=== PATIENT | female | born 1990 | race Caucasian/White ===

== ENCOUNTER 2018-05-07 19:00 | Emergency (ER) | payer OTHER ==
[2018-05-07 19:38] VITALS: RESP 18; TEMP 98
--- NOTE | 2018-05-07 20:18 | XR ---
EXAMINATION TYPE: XR knee complete RT DATE OF EXAM: 05/07/2018 COMPARISON: NONE HISTORY: Knee pain TECHNIQUE: 3 views FINDINGS: I see no fracture nor dislocation. There is no sign of a joint effusion. Joint spaces are f airly normal. IMPRESSION: Negative right knee exam.
[2018-05-07] MEDS ORDERED: KETOROLAC 30 MG/ML 1 ML VIAL IM STA (21:03)
--- NOTE | 2018-05-07 21:07 | ED ---
Lower Extremity Injury HPI - General Chief Complaint: Extremity Injury, Lower Stated Complaint: Knee popped Source: patient Mode of arrival: wheelchair Limitations: no limitations - History of Present Illness Initial Comments: 27-year-old female with past medical history of drug abuse presenting today for chief complaint of right knee pain. Patient states she went to stand up today from a seated position noting severe pain in the right knee as well as a popping sensation. Patient felt as though her knee was unstable following that incident. Patient denies any dislocation. Patient denies numbness, tingling, loss sensation. Patient states she has difficulty fully weightbearing secondary to fear of knee giving out. Patient denies any redness, swelling or warmth to palpation the chart. Patient denies a fever, chills or night sweats. Patient denies any recent IV drug use. Upon arrival patient appears well, no signs of acute distress. Patient has Tuan bandage around right knee. Remainder of ROS is negative, patient denies any recent fever, chills, shortness of breath , chest pain, back pain, abdominal pain, nausea or vomiting, numbness or tingling, dysuria or hematuria, constipation or diarrhea, headaches or visual changes, or any other complaints. Upon arrival patient appears well, no signs acute distress. She denies recent antibiotic use including fluoroquinolones. PT denies . - Related Data Home Medications Medication Instructions Recorded Confirmed Acetaminophen [Tylenol Arthritis] 650 mg PO Q4H 05/07/18 05/07/18 Calcium Carbonate [Calcium] 1,200 mg PO TID 05/07/18 05/07/18 Chlorpheniramine Maleate 4 mg PO Q4H 05/07/18 05/07/18 [Chlor-Trimeton] FLUoxetine HCL [PROzac] 20 mg PO DAILY@0600 05/07/18 05/07/18 Ibuprofen [Motrin] 600 mg PO Q6HR PRN 05/07/18 05/07/18 Magnesium Gluconate [Magonate] 500 mg PO TID 05/07/18 05/07/18 Methadone (Dose Unknown) 1 dose PO DIRECTED 05/07/18 05/07/18 Multivitamins, Thera [Multivitamin 1 tab PO DAILY 05/07/18 05/07/18 (formulary)] Ondansetron HCl [Zofran] 8 mg PO DAILY PRN 05/07/18 05/07/18 Ondansetron [Zofran] 4 mg IM DIRECTED PRN 05/07/18 05/07/18 QUEtiapine [SEROquel] 200 mg PO BID 05/07/18 05/07/18 busPIRone HCL [Buspar] 15 mg PO BID@0600,1730 05/07/18 05/07/18 traZODone HCL [TraZODone HCl] 50 - 150 mg PO HS 05/07/18 05/07/18 Allergies Allergy/AdvReac Type Severity Reaction Status Date / Time Penicillins Allergy Anaphylaxis Verified 05/07/18 20:56 Review of Systems ROS Statement: Those systems with pertinent positive or pertinent negative responses have been documented in the HPI. ROS Other: All systems not noted in ROS Statement are negative. Constitutional: Denies: fever Eyes: Denies: as per HPI Past Medical History Past Medical History: Asthma Additional Past Medical History / Comment(s): hep c History of Any Multi-Drug Resistant Organisms: None Reported Past Surgical History: Tonsillectomy Past Psychological History: Anxiety, Bipolar, Depression, Schizophrenia Smoking Status: Current every day smoker Past Alcohol Use History: None Reported Past Drug Use History: Heroin General Exam - General Exam Comments Initial Comments: General: The patient is awake and alert, in no distress, and does not appear acutely ill. Eye: Pupils are equal, round and reactive to light, extra-ocular movements are intact. No nystagmus. There is normal conjunctiva bilaterally. No signs of icterus. Ears, nose, mouth and throat: There are moist mucous membranes and no oral lesions. Neck: The neck is supple, there is no tenderness or JVD. Cardiovascular: There is a regular rate and rhythm. No murmur, rub or gallop is appreciated. Respiratory: Lungs are clear to auscultation, respirations are non-labored, breath sounds are equal. No wheezes, stridor, rales, or rhonchi. Gastrointestinal: Soft, non-distended, non-tender abdomen without masses or organomegaly noted. There is no rebound or guarding present. Bowel sounds are unremarkable. Musculoskeletal: Upon inspection of the knees bilaterally day. Equal, no erythema soft tissue swelling, lesions or abrasions. Patient is able to fully range of both knees however she complains of pain with range motion of the right knee and is hesitant with full flexion and extension. Sensory mechanism is intact. No noted laxity on examination. Patient refused to strength test right knee secondary to pain. Full strength of the left lower extremity and remainder of joints of the right lower extremity. Patient is tender to patient anterior right knee. . Sensation intact of the lower extremities equally bilaterally both proximal and distal to injury. DP pulses equal bilaterally 2+. Capillary refill less than 2 seconds and compartments are soft and compressible. Neurological: A&O x 3. CN II-XII intact, There are no obvious motor or sensory deficits. Coordination appears grossly intact. Speech is normal. Skin: Skin is warm and dry and no rashes or lesions are noted. Psychiatric: Cooperative, appropriate mood & affect, normal judgment. Limitations: no limitations Course Vital Signs 05/07/18 05/07/18 19:34 21:30 Temperature 98 F Pulse Rate 96 94 Respiratory 18 18 Rate Blood Pressure 115/78 116/74 O2 Sat by Pulse 98 94 L Oximetry Medical Decision Making - Medical Decision Making Patient neurovascularly intact. No evidence of footdrop. Compartments are soft and compressible. Extensor mechanism intact. No noted laxity. X-ray negative for acute fracture or dislocation. Patient's story concerning for ligamentous injury. No obvious infectious process at this time. Patient will be placed in knee immobilizer as well as given a prescription for crutches. Patient is instructed to nonweight bearing until orthopedic surgery follow-up and evaluation. Patient is agreeable plan. I discussed the case in detail with Dr. Muniz Agrees impression and plan. Patient was given medication for pain management and instructed to use [id number] ibuprofen Tylenol for further management outpatient. Rice instructions were discussed in detail patient. Patient verbalized understanding. I discussed all return parameters at length the patient verbalizes understanding. At this time do feel patient is stable for discharge with orthopedic surgery follow-up. Patient denied questions upon discharge. Patient appeared well upon discharge with vital signs within acceptable limits. Disposition Clinical Impression: Right knee pain Disposition: HOME SELF-CARE Condition: Good Instructions: Knee Sprain (ED) Additional Instructions: Please use over the counter medication such as ibuprofen and tylenol, as discussed. Please follow-up with orthopedic surgery in the next 2-3 days for further evaluation for ligamentous injury. Please use knee immobilization for ambulating, please use crutches for ambulation. Please return to emergency room if the symptoms increase or worsen or for any other concerns. Is patient prescribed a controlled substance at d/c from ED?: No Referrals: None,Stated [Primary Care Provider] - 1-2 days Adolfo Humphries PAC [PHYSICIAN [employer]] - 1-2 days Time of Disposition: 21:06
[2018-05-07 21:42] VITALS: BP 116/74; PULSE 94
== END 2018-05-07 21:30 | disposition home or self-care (01) ==
LOC: EC 19:00
DX: M25.561 Pain in right knee (principal); F41.9 Anxiety disorder, unspecified; F32.9 Major depressive disorder, single episode, unspecified; F20.9 Schizophrenia, unspecified; F17.200 Nicotine dependence, unspecified, uncomplicated; Z79.891 Long term (current) use of opiate analgesic; Z79.899 Other long term (current) drug therapy; Z88.0 Allergy status to penicillin
CPT/HCPCS: 73562; 99283; 96372; L1830; J1885